=== PATIENT | female | born 1990 | race Caucasian/White ===

== ENCOUNTER → 2022-03-02 | Emergency (ER) | payer BC ==
[~2022-03-02] VITALS: Ht 157.5 cm; Wt 97.5 kg
[~2022-03-02] MED LIST: ASPIRIN 81 MG TAB.CHEW PO ONE; HYDR-3917 PO; IBUP-1969 PO; KETOROLAC TROMETHAMINE 60 MG/2 ML VIAL IM ONE
[2022-03-02 22:44] VITALS: BP_SYST 151
--- NOTE | 2022-03-02 22:55 | NUR ---
BIB AMB WITH CHARGE NURSE. C/O ID STERNAL CHEST PAIN X3 HOURS. PAIN INCREASES WITH PALPATION OR PRESSURE. PAIN LEVAL 10/10. DENIES INJURY, N/V/D/ OR FEVER OR COUGH
[2022-03-03 00:51] LABS: ANION GAP 7 (5-15); CALCIUM 8.9 mg/dL (8.4-11.0); CHLORIDE 105 mmol/L (98-107); CREATININE 0.71 mg/dL (0.55-1.30); GLUCOSE 101 mg/dL (70-99); POTASSIUM 3.5 mmol/L (3.5-5.1); SODIUM SERUM 138 mmol/L (136-145); UREA NITROGEN, BLOOD 9 mg/dL (8-21)
[2022-03-03 01:01] LABS: BILIRUBIN,URINE NEGATIVE (NEGATIVE); BLOOD, URINE NEGATIVE (NEGATIVE); CLARITY/URINE CLEAR (CLEAR); COLOR,URINE YELLOW (YELLOW); GLUCOSE,URINE NEGATIVE (NEGATIVE); KETONES,URINE NEGATIVE (NEGATIVE); LEUKOCYTE ESTERASE ,URINE NEGATIVE (NEGATIVE); NITRITE, URINE NEGATIVE (NEGATIVE); PROTEIN URINE NEGATIVE (NEGATIVE); UROBILINOGEN,URINE 0.2 (0.2-1.0)
[2022-03-03 01:03] LABS: ALANINE AMINOTRANSFERASE 44 U/L (12-78); ALBUMIN 3.7 g/dL (3.4-4.8); ASPARTATE AMINOTRANSFERASE 24 U/L (10-37); HCG,QUANTITATIVE 0 mIU/ML (0-6); TOTAL BILIRUBIN 0.1 mg/dL (0.0-1.0)
[2022-03-03 01:05] LABS: GFR AFRICAN AMERICAN 124 mL/min (>90)
[2022-03-03 01:26] LABS: BASOPHILS # (AUTO) 0.1 K/uL (0.0-0.2); BASOPHILS % (AUTO) 0.5 % (0.0-2.0); EOSINOPHILS # (AUTO) 0.2 K/uL (0.0-0.4); EOSINOPHILS % (AUTO) 1.9 % (0.0-4.0); HEMATOCRIT 37.7 % (36-48); HEMOGLOBIN 12.8 g/dL (12.0-16.0); LYMPHOCYTES # (AUTO) 4.1 K/uL (1.0-5.5); LYMPHOCYTES % (AUTO) 32.1 % (20.5-51.5); MEAN CORPUSCULAR HEMOGLOBIN 30 pg (27-31); MEAN CORPUSCULAR HGB CONC 34 % (32-36); MEAN CORPUSCULAR VOLUME 88 fL (79.0-98.0); MONOCYTES # (AUTO) 0.6 K/uL (0.0-1.0); MONOCYTES % (AUTO) 4.9 % (1.7-9.3); NEUTROPHILS # (AUTO) 7.8 K/uL (1.8-7.7); NEUTROPHILS % (AUTO) 60.6 % (40.0-70.0); PLATELET COUNT (AUTO) 279 K/uL (130-430); RED CELL DISTRIBUTION WIDTH 12.8 % (9.0-15.0); WHITE BLOOD COUNT (AUTO) 12.9 K/uL (4.8-10.8)
--- NOTE | 2022-03-03 03:11 | NUR ---
PT RESTING COMFORTABLY. MEDICATED PER ER MD ORDER/ EMAR. CONTINUED OBSERVATION.
--- NOTE | 2022-03-03 04:56 | NUR ---
BRIAN MODI PT STABLE FOR D/C TO HOME. TO LOBBY AMB WITH ALL PAPERWORK IN HAND. NO C/O PAIN OR DISCOMFORT AT THIS TIME.
[2022-03-03 06:00] VITALS: BP_SYST 120
== END | disposition home or self-care (01) ==
LOC: SED 22:38
DX: R07.89 Other chest pain (principal); R03.0 Elevated blood-pressure reading, without diagnosis of hypertension; Z79.899 Other long term (current) drug therapy
CPT/HCPCS: 36415; 71045; 80053; 81003; 81025; 83880; 84484; 84702; 85025; 85379; 93005; 96372; 99285; J1885

== ENCOUNTER 2022-03-03 16:39 | Emergency (ER) | payer BC ==
[~2022-03-03] VITALS: Ht 167.6 cm; Wt 99.8 kg
[2022-03-03 16:45] VITALS: BP_SYST 122
[2022-03-03 18:25] LABS: BASOPHILS # (AUTO) 0.1 K/uL (0.0-0.2); BASOPHILS % (AUTO) 0.5 % (0.0-2.0); EOSINOPHILS # (AUTO) 0.2 K/uL (0.0-0.4); EOSINOPHILS % (AUTO) 1.6 % (0.0-4.0); LYMPHOCYTES # (AUTO) 3.2 K/uL (1.0-5.5); LYMPHOCYTES % (AUTO) 31.8 % (20.5-51.5); MEAN CORPUSCULAR HEMOGLOBIN 30 pg (27-31); MEAN CORPUSCULAR HGB CONC 34 % (32-36); MEAN CORPUSCULAR VOLUME 87 fL (79.0-98.0); MONOCYTES # (AUTO) 0.4 K/uL (0.0-1.0); MONOCYTES % (AUTO) 3.9 % (1.7-9.3); NEUTROPHILS # (AUTO) 6.2 K/uL (1.8-7.7); NEUTROPHILS % (AUTO) 62.2 % (40.0-70.0); PLATELET COUNT (AUTO) 262 K/uL (130-430); RED BLOOD CELL COUNT(AUTO) 4.38 MIL/uL (4.2-6.2)
[2022-03-03 18:49] LABS: ANION GAP 10 (5-15); CALCIUM 8.8 mg/dL (8.4-11.0); CHLORIDE 107 mmol/L (98-107); CREATININE 0.71 mg/dL (0.55-1.30); GLUCOSE 85 mg/dL (70-99); SODIUM SERUM 141 mmol/L (136-145); UREA NITROGEN, BLOOD 11 mg/dL (8-21)
[2022-03-03 18:58] LABS: ALANINE AMINOTRANSFERASE 40 U/L (12-78); ALBUMIN 3.5 g/dL (3.4-4.8); ASPARTATE AMINOTRANSFERASE 23 U/L (10-37); TOTAL BILIRUBIN 0.4 mg/dL (0.0-1.0)
[2022-03-03 19:01] LABS: GFR AFRICAN AMERICAN 124 mL/min (>90)
[2022-03-03] MEDS ORDERED: HYDR-3917 PO (20:25)
[2022-03-03] MEDS ORDERED: IBUP-1969 PO (20:25)
[2022-03-03 20:38] VITALS: BP_SYST 132
== END 2022-03-03 20:38 | disposition home or self-care (01) ==
LOC: SED 16:39
DX: R07.89 Other chest pain (principal); Z79.899 Other long term (current) drug therapy
CPT/HCPCS: 36415; 71045; 80053; 84484; 85025; 93005; 99284; 99285